=== PATIENT | female | born 1965 | race Caucasian/White ===

== ENCOUNTER 2023-09-19 18:13 | Emergency (ER) | payer BC, SELFPAY ==
[2023-09-19 18:25] VITALS: BP 175/77; PULSE 94; RESP 16; TEMP 36.7; O2SAT 96
--- NOTE | 2023-09-19 18:31 | ED.URI ---
HPI - URI/Sore Throat General Chief Complaint: Upper Respiratory Infection Stated Complaint: ear/nose/cough Time Seen by Provider: 09/19/23 18:32 Source: patient, RN notes reviewed and old records reviewed Mode of arrival: ambulatory Limitations: no limitations History of Present Illness HPI Narrative: 58 year old female accompanied by spouse with complaints of cough, left ear pain, sore throat, low grade fevers and feeling bad for the past 5 days. Patient reports that cough is bothersome and is worse at night. She states was ill with similar symptoms and he was given antibiotics and steroids. Patient reports that she has been taking Ibuprofen for her symptoms. MD elicited complaint: fever (low grade), cough, sore throat and other (left ear pain) Onset (ago): day(s) (5 days) Consistency: progressively worsening Severity: moderate Description of mucous: clear Able to tolerate fluids by mouth: Yes Treatments prior to arrival: ibuprofen Related Data Home Medications Medication Instructions Recorded Confirmed aripiprazole 2 mg tablet mg 09/19/23 bupropion HCl 150 mg tablet,12 hr mg PO 09/19/23 sustained-release buspirone 30 mg tablet mg 09/19/23 [id number]-[id number]-rzjnhyuv tablet 09/19/23 50 mg-325 mg-40 mg tablet meloxicam 7.5 mg tablet mg 09/19/23 metoprolol succinate 25 mg mg PO 09/19/23 tablet,extended release 24 hr mirtazapine 15 mg tablet mg 09/19/23 vilazodone 40 mg tablet mg 09/19/23 zolpidem 12.5 mg tablet,extended mg PO 09/19/23 release,multiphase Allergies Allergy/AdvReac Type Severity Reaction Status Date / Time No Known Allergies Allergy Unknown Verified 11/17/07 21:07 Review of Systems Review of Systems: CONSTITUTIONAL:Reports malaise, chills, sweats, or fever. EYES: Denies visual changes, redness, or discharge. ENT: Reports rhinorrhea, congestion, sinus pain, left otalgia and sore throat. CARDIOVASCULAR: Denies chest pain, palpitations, or edema. RESPIRATORY: Reports cough.? Denies dyspnea. GASTROINTESTINAL: Denies abdominal pain, nausea, vomiting, diarrhea SKIN: Denies rash or itching. MUSCULOSKELETAL: Denies myalgia. NEUROLOGIC: Denies headache. All systems reviewed & are unremarkable except as noted in HPI and below PMFSH Past Medical History Medical History Depression Hx of migraines Hypertension Obesity Surgical History Surgical History H/O: hysterectomy Hx of cholecystectomy Previous section Social History Social History Smoking status: Never smoker Alcohol intake: current Alcohol use details: rare Substance use type: does not use Living arrangements: with family Gender identity (if verbalized by the patient): Female Comments At time of signature, agree with nursing past medical, surgical, social and family history. There is no relevant family history pertinent to the presenting complaint Exam Narrative: GENERAL: Well-appearing, well-nourished, obese,and in no acute distress. HEAD: Normocephalic EYES: PERRLA, conjunctivae clear ENT: Nares clear, turbinates edematous and erythematous, clear discharge, sinus pressure Mucous membranes moist. TM pearly ceja with dull light reflex bilaterally; no tragal tenderness. Oropharynx erythematous without lesions. Tonsils not enlarged and without exudate, no drooling, no hoarseness, no trismus, uvula midline.post nasal drainage noted NECK: Supple. No lymphadenopathy CHEST: Clear to auscultation, breath sounds equal. No wheezing, rhonchi, rales, or stridor. No respiratory distress, speaks in full sentences cough SA02 96% on room air. HEART: Regular rate and rhythm. No murmur heard. SKIN: Warm, dry, no rash. NEURO: Alert and oriented x3. PSYCH: Normal mood and affect Course Course Mala
== END 2023-09-19 18:53 | disposition home or self-care (01) ==
PROVIDERS: Emergency Provider Registered Nurse; PCP Family Medicine
DX: J32.9 Chronic sinusitis, unspecified (principal); R05.9 Cough, unspecified; I10 Essential (primary) hypertension; E66.9 Obesity, unspecified
CPT/HCPCS: 99213; G0463